=== PATIENT | female | born 1990 | race Hispanic/Latino ===

== ENCOUNTER 2016-11-25 01:40 | Inpatient (IN) | payer OTHER ==
[2016-11-25] MEDS ORDERED: LACTATED RINGERS 1,000 ML ONE (03:55)
--- NOTE | 2016-11-25 04:27 | History and Physical Report ---
History of Present Illness Date of examination: 11/25/16 Chief complaint: PPROM History of present illness: 26-year-old at ~ 35 weeks presents with rupture of membranes, she is a [facility] patient. care has been unremarkable. Patient grossly ruptured per RN in triage, cephalic presentation on sono She is 1 cm dilated Past History Past Medical History: no pertinent history Past Surgical History: no surgical history [facility] History: denies: chlamydia, gonorrhea, hepatitis B, hepatitis C, herpes, HIV , syphilis, trichomonas Social history: , full code. denies: smoking, alcohol abuse, prescription drug abuse, IV drug use - Obstetrical History Expected Date of Delivery: 12/29/16 Actual Gestation: 35 Week(s) 1 Day(s) : 1 Para: 0 Medications and Allergies Allergies Allergy/AdvReac Type Severity Reaction Status Date / Time No Known Allergies Allergy Verified 11/25/16 04:22 Review of Systems Constitutional: no fever, no chills, no sweats, no night sweats, no anorexia, no fatigue Cardiovascular: no chest pain, no orthopnea, no syncope, no lightheadedness, no shortness of breath, no dyspnea on exertion, no paroxysmal nocturnal dyspnea, no high blood pressure Respiratory: no cough with sputum, no hemoptysis, no shortness of breath, no dyspnea on exertion Gastrointestinal: no abdominal pain, no nausea, no vomiting Genitourinary: leakage of fluid, no vaginal bleeding, no vaginal discharge - Vital Signs Vital signs: Vital Signs Pulse Pulse Ox 227 H 82 L 11/25/16 01:56 11/25/16 01:56 Temp Pulse Resp BP Pulse Ox 98.5 F 98 H 18 131/90 82 L 11/25/16 02:10 11/25/16 03:57 11/25/16 02:10 11/25/16 01:57 11/25/16 03:57 - Physical Exam Abdomen: Positive: normal appearance, soft. Negative: distention, tenderness, guarding, rigidity Genitourinary (Female): Positive: normal external genitalia Uterus: Positive: enlarged (EFW ~ 3000). Negative: tender Adnexa: both: normal Extremities: Positive: normal - Obstetrical FHR: category 1 Cervical Dilatation: 1 (per RN exam) Results All other labs normal. Assessment and Plan A: 26-year-old at 35+1 weeks presents with PPROM -Cat 1 tracing P: -Admit -Obtain routine labs -Expectant management -Anticipate normal vaginal delivery - Patient Problems (1) 35 weeks gestation of Current Visit: Yes Status: Acute (2) Premature rupture of membranes (PROM) affecting first Current Visit: Yes Status: Acute
[2016-11-25] MEDS ORDERED: BRETHINE IVP PRN (04:30)
[2016-11-25] MEDS ORDERED: PHENERGAN PO PRN (04:30)
[2016-11-25] MEDS ORDERED: ZOFRAN IV PRN (04:30)
[2016-11-25] MEDS ORDERED: POLYCILLIN/NS 2 GM/100 ML 2 GM/100 ML BAG IV ONE (04:30)
[2016-11-25] MEDS ORDERED: XYLOCAINE 2% INFILTRATI ONE (04:30)
[2016-11-25] MEDS ORDERED: ePHEDrine SULFATE IV PRN (04:30)
[2016-11-25] MEDS ORDERED: BRETHINE SUB-Q PRN (04:30)
[2016-11-25] MEDS ORDERED: MINERAL OIL PO PRN (04:30)
[2016-11-25] MEDS ORDERED: PITOCin/NS 20 UNIT/1000ML DRIP 20 UNITS/1,000 ML BAG IV SCH (05:00)
[2016-11-25 05:03] LABS: Hematocrit 32.7 % (30.3-42.9); Hemoglobin 11.2 gm/dl (10.1-14.3); Mean Corpuscular HGB Conc 34 % (30-34); Mean Corpuscular Hemoglobin 30 pg (28-32); Mean Corpuscular Volume 88 fl (79-97); Platelet Count 255 K/mm3 (140-440); Red Blood Count 3.71 M/mm3 (3.65-5.03); White Blood Count 9.5 K/mm3 (4.5-11.0)
[2016-11-25] MEDS: LACTATED RINGERS 1,000 ML IV SCH ×2 (05:15→15:13)
[2016-11-25 06:32] LABS: Urine Drugs of Abuse Note Disclamer
--- NOTE | 2016-11-25 08:01 | Ultrasound Report ---
ULTRASOUND OB LIMITED History: well being, evaluate presentation Technique: Transabdominal ultrasound with Doppler interrogation. Gestation: Single Position: Cephalic Heart Rate: 149 BPM
[2016-11-25] MEDS: POLYCILLIN/NS 1 GM/50 ML 1 GM/50 ML BAG IV SCH ×4 (09:24→21:35)
[2016-11-25] MEDS: PITOCin/NS 30 UNIT/500ML 30 UNITS/500 ML BAG IV SCH ×4 (09:56→11:36)
--- NOTE | 2016-11-25 10:43 | Progress Note ---
Assessment and Plan - Patient Problems (1) 35 weeks gestation of Current Visit: Yes Status: Acute (2) Premature rupture of membranes (PROM) affecting first Current Visit: Yes Status: Acute Subjective - Subjective Date of service: 11/25/16 Patient reports: new complaints, movement normal, no loss of fluid, no vaginal bleeding Objective - Vital Signs Vital Signs: Vital Signs - 12hr 11/25/16 11/25/16 11/25/16 01:56 01:57 02:02 Temperature Pulse Rate 227 H 107 H 112 H Respiratory Rate Blood Pressure 131/90 Blood Pressure [Right] O2 Sat by Pulse 82 L 99 96 Oximetry 11/25/16 11/25/16 11/25/16 02:07 02:08 02:09 Temperature Pulse Rate 105 H 85 166 H Respiratory Rate Blood Pressure Blood Pressure [Right] O2 Sat by Pulse 95 97 82 L Oximetry 11/25/16 11/25/16 11/25/16 02:10 02:13 02:26 Temperature 98.5 F Pulse Rate 278 H 192 H Respiratory 18 Rate Blood Pressure Blood Pressure [Right] O2 Sat by Pulse 82 L 82 L Oximetry 11/25/16 11/25/16 11/25/16 02:27 02:28 02:29 Temperature Pulse Rate 133 H 174 H 182 H Respiratory Rate Blood Pressure Blood Pressure [Right] O2 Sat by Pulse 82 L 82 L 82 L Oximetry 11/25/16 11/25/16 11/25/16 02:35 02:37 02:43 Temperature Pulse Rate 352 H 133 H 289 H Respiratory Rate Blood Pressure Blood Pressure [Right] O2 Sat by Pulse 96 82 L 82 L Oximetry 11/25/16 11/25/16 11/25/16 02:49 02:56 02:58 Temperature Pulse Rate 97 H 293 H 50 L Respiratory Rate Blood Pressure Blood Pressure [Right] O2 Sat by Pulse 82 L 82 L 82 L Oximetry 11/25/16 11/25/16 11/25/16 02:59 03:00 03:02 Temperature Pulse Rate 45 L 72 29 L Respiratory Rate Blood Pressure Blood Pressure [Right] O2 Sat by Pulse 82 L 82 L 82 L Oximetry 11/25/16 11/25/16 11/25/16 03:03 03:04 03:05 Temperature Pulse Rate 85 88 67 Respiratory Rate Blood Pressure Blood Pressure [Right] O2 Sat by Pulse 82 L 82 L 82 L Oximetry 11/25/16 11/25/16 11/25/16 03:06 03:14 03:16 Temperature Pulse Rate 125 H 105 H 227 H Respiratory Rate Blood Pressure Blood Pressure [Right] O2 Sat by Pulse 99 82 L 82 L Oximetry 11/25/16 11/25/16 11/25/16 03:17 03:20 03:22 Temperature Pulse Rate 79 113 H 138 H Respiratory Rate Blood Pressure Blood Pressure [Right] O2 Sat by Pulse 82 L 82 L 82 L Oximetry 11/25/16 11/25/16 11/25/16 03:23 03:25 03:57 Temperature Pulse Rate 138 H 100 H 98 H Respiratory Rate Blood Pressure Blood Pressure [Right] O2 Sat by Pulse 82 L 82 L 82 L Oximetry 11/25/16 11/25/16 11/25/16 04:30 05:37 06:06 Temperature 98.7 F 98.5 F Pulse Rate Respiratory 18 18 18 Rate Blood Pressure Blood Pressure [Right] O2 Sat by Pulse Oximetry 11/25/16 11/25/16 11/25/16 07:45 08:13 09:04 Temperature 97.8 F 98.8 F Pulse Rate 86 88 113 H Respiratory 20 18 Rate Blood Pressure 121/74 Blood Pressure 121/74 124/86 [Right] O2 Sat by Pulse 98 97 Oximetry 11/25/16 11/25/16 11/25/16 09:07 09:59 10:04 Temperature Pulse Rate 140 H 110 H 114 H Respiratory Rate Blood Pressure 124/86 126/76 Blood Pressure [Right] O2 Sat by Pulse 97 98 96 Oximetry 11/25/16 11/25/16 11/25/16 10:09 10:14 10:19 Temperature Pulse Rate 109 H 119 H 109 H Respiratory Rate Blood Pressure Blood Pressure [Right] O2 Sat by Pulse 96 97 95 Oximetry 11/25/16 11/25/16 11/25/16 10:23 10:24 10:29 Temperature Pulse Rate 95 H 107 H 96 H Respiratory Rate Blood Pressure Blood Pressure [Right] O2 Sat by Pulse 94 96 97 Oximetry 11/25/16 11/25/16 11/25/16 10:34 10:39 10:44 Temperature Pulse Rate 97 H 119 H 115 H Respiratory Rate Blood Pressure 116/74 Blood Pressure [Right] O2 Sat by Pulse 96 94 96 Oximetry - Exam FHR: category 1 - Labs Labs: Abnormal Labs 11/25/16 04:30 RDW 13.0 L Laboratory Results - last 24 hr 11/25/16 11/25/16 11/25/16 04:30 04:39 06:20 WBC 9.5 RBC 3.71 Hgb 11.2 Hct 32.7 MCV 88 MCH 30 MCHC 34 RDW 13.0 L Plt Count 255 Urine Opiates Screen Presumptive negative Urine Methadone Screen Presumptive negative Ur Barbiturates Screen Presumptive negative Ur Phencyclidine Scrn Presumptive negative Ur Amphetamines Screen Presumptive negative U Benzodiazepines Scrn Presumptive negative Urine Cocaine Screen Presumptive negative U Marijuana (THC) Screen Presumptive negative Drugs of Abuse Note Disclamer Blood Type A POSITIVE Antibody Screen Negative
[2016-11-25] MEDS ORDERED: DEEP SEA NS PRN (11:00)
--- NOTE | 2016-11-25 20:15 | Progress Note ---
Assessment and Plan - Patient Problems (1) 35 weeks gestation of Current Visit: Yes Status: Acute (2) Premature rupture of membranes (PROM) affecting first Current Visit: Yes Status: Acute Subjective - Subjective Date of service: 11/25/16 Patient reports: new complaints, movement normal, no loss of fluid, no vaginal bleeding, no contractions Objective - Vital Signs Vital Signs: Vital Signs - 12hr 11/25/16 11/25/16 11/25/16 09:04 09:07 09:59 Temperature 98.8 F Pulse Rate 113 H 140 H 110 H Respiratory 18 Rate Blood Pressure 124/86 126/76 Blood Pressure 124/86 [Right] O2 Sat by Pulse 97 97 98 Oximetry 11/25/16 11/25/16 11/25/16 10:04 10:09 10:14 Temperature Pulse Rate 114 H 109 H 119 H Respiratory Rate Blood Pressure Blood Pressure [Right] O2 Sat by Pulse 96 96 97 Oximetry 11/25/16 11/25/16 11/25/16 10:19 10:23 10:24 Temperature Pulse Rate 109 H 95 H 107 H Respiratory Rate Blood Pressure Blood Pressure [Right] O2 Sat by Pulse 95 94 96 Oximetry 11/25/16 11/25/16 11/25/16 10:29 10:34 10:39 Temperature Pulse Rate 96 H 97 H 119 H Respiratory Rate Blood Pressure 116/74 Blood Pressure [Right] O2 Sat by Pulse 97 96 94 Oximetry 11/25/16 11/25/16 11/25/16 10:44 10:46 10:49 Temperature Pulse Rate 115 H 88 85 Respiratory Rate Blood Pressure Blood Pressure [Right] O2 Sat by Pulse 96 92 98 Oximetry 11/25/16 11/25/16 11/25/16 10:52 10:54 10:57 Temperature Pulse Rate 107 H 110 H 96 H Respiratory Rate Blood Pressure Blood Pressure [Right] O2 Sat by Pulse 93 95 94 Oximetry 11/25/16 11/25/16 11/25/16 10:59 11:03 11:04 Temperature Pulse Rate 111 H 105 H 87 Respiratory Rate Blood Pressure Blood Pressure [Right] O2 Sat by Pulse 95 94 95 Oximetry 11/25/16 11/25/16 11/25/16 11:08 11:09 11:14 Temperature Pulse Rate 85 86 107 H Respiratory Rate Blood Pressure 119/70 Blood Pressure [Right] O2 Sat by Pulse 96 97 Oximetry 11/25/16 11/25/16 11/25/16 11:19 11:24 11:25 Temperature Pulse Rate 100 H 83 85 Respiratory Rate Blood Pressure Blood Pressure [Right] O2 Sat by Pulse 95 95 94 Oximetry 11/25/16 11/25/16 11/25/16 11:29 11:30 11:34 Temperature Pulse Rate 107 H 100 H 98 H Respiratory Rate Blood Pressure Blood Pressure [Right] O2 Sat by Pulse 96 94 95 Oximetry 11/25/16 11/25/16 11/25/16 11:39 11:44 11:56 Temperature 98.4 F Pulse Rate 91 H 104 H 119 H Respiratory 18 Rate Blood Pressure 106/65 Blood Pressure 116/66 [Right] O2 Sat by Pulse 97 96 97 Oximetry 11/25/16 11/25/16 11/25/16 11:59 13:00 14:00 Temperature Pulse Rate 106 H 89 96 H Respiratory Rate Blood Pressure 116/66 117/76 124/79 Blood Pressure [Right] O2 Sat by Pulse 96 Oximetry 11/25/16 11/25/16 11/25/16 14:59 15:59 16:00 Temperature 98.5 F Pulse Rate 100 H 95 H 95 H Respiratory 18 Rate Blood Pressure 116/68 121/76 Blood Pressure 121/76 [Right] O2 Sat by Pulse Oximetry 11/25/16 11/25/16 11/25/16 17:01 17:59 18:59 Temperature Pulse Rate 85 85 118 H Respiratory Rate Blood Pressure 114/72 112/77 110/77 Blood Pressure [Right] O2 Sat by Pulse Oximetry 11/25/16 11/25/16 19:36 19:59 Temperature Pulse Rate 105 H 110 H Respiratory Rate Blood Pressure 128/79 118/74 Blood Pressure [Right] O2 Sat by Pulse Oximetry - Exam FHR: category 1 - Labs Labs: Abnormal Labs 11/25/16 04:30 RDW 13.0 L Laboratory Results - last 24 hr 11/25/16 11/25/16 11/25/16 04:30 04:39 04:50 WBC 9.5 RBC 3.71 Hgb 11.2 Hct 32.7 MCV 88 MCH 30 MCHC 34 RDW 13.0 L Plt Count 255 Urine Opiates Screen Urine Methadone Screen Ur Barbiturates Screen Ur Phencyclidine Scrn Ur Amphetamines Screen U Benzodiazepines Scrn Urine Cocaine Screen U Marijuana (THC) Screen Drugs of Abuse Note RPR Nonreactive Blood Type A POSITIVE Antibody Screen Negative 11/25/16 06:20 WBC RBC Hgb Hct MCV MCH MCHC RDW Plt Count Urine Opiates Screen Presumptive negative Urine Methadone Screen Presumptive negative Ur Barbiturates Screen Presumptive negative Ur Phencyclidine Scrn Presumptive negative Ur Amphetamines Screen Presumptive negative U Benzodiazepines Scrn Presumptive negative Urine Cocaine Screen Presumptive negative U Marijuana (THC) Screen Presumptive negative Drugs of Abuse Note Disclamer RPR Blood Type Antibody Screen
[2016-11-26] MEDS: POLYCILLIN/NS 1 GM/50 ML 1 GM/50 ML BAG IV SCH ×4 (01:24→17:14)
[2016-11-26] MEDS: SUBLIMAZE IV PRN ×5 (02:39→10:29)
--- NOTE | 2016-11-26 06:32 | Progress Note ---
Assessment and Plan A: 26-year-old at 35+2 weeks presents with PPROM -Cat 1 tracing P: -Continue induction process -Anticipate normal vaginal delivery - Patient Problems (1) 35 weeks gestation of Current Visit: Yes Status: Acute (2) Premature rupture of membranes (PROM) affecting first Current Visit: Yes Status: Acute Subjective - Subjective Date of service: 11/26/16 Principal diagnosis: PPROM at 35+2 wks Interval history: Patient currently on Pitocin at 20 mu per minute, she is now 3 cm dilated Patient reports: new complaints, loss of fluid, movement normal, no vaginal bleeding, no contractions Objective - Vital Signs Vital Signs: Vital Signs - 12hr 11/25/16 11/25/16 11/25/16 18:59 19:30 19:36 Temperature 97.8 F Pulse Rate 118 H 105 H Respiratory 18 Rate Blood Pressure 110/77 128/79 11/25/16 11/26/16 11/26/16 19:59 00:10 00:16 Temperature 98.3 F Pulse Rate 110 H 108 H Respiratory 18 Rate Blood Pressure 118/74 129/59 11/26/16 11/26/16 11/26/16 00:47 01:22 01:47 Temperature Pulse Rate 93 H 97 H 94 H Respiratory Rate Blood Pressure 106/57 118/74 124/79 11/26/16 11/26/16 11/26/16 02:19 02:23 02:39 Temperature 98.3 F Pulse Rate 95 H Respiratory 20 Rate Blood Pressure 121/76 11/26/16 11/26/16 11/26/16 02:47 03:17 04:18 Temperature Pulse Rate 88 83 85 Respiratory Rate Blood Pressure 127/78 122/72 122/65 11/26/16 11/26/16 11/26/16 04:38 04:48 05:17 Temperature 98.3 F Pulse Rate 87 77 Respiratory 20 Rate Blood Pressure 118/77 107/61 11/26/16 11/26/16 11/26/16 05:48 06:18 06:29 Temperature 98.1 F Pulse Rate 80 101 H Respiratory 18 Rate Blood Pressure 109/65 131/65 - Exam FHR: category 1 Cervical Dilatation: 3 - Labs Labs: Abnormal Labs 11/25/16 04:30 RDW 13.0 L Laboratory Results - last 24 hr 11/25/16 11/25/16 04:50 06:20 Urine Opiates Screen Presumptive negative Urine Methadone Screen Presumptive negative Ur Barbiturates Screen Presumptive negative Ur Phencyclidine Scrn Presumptive negative Ur Amphetamines Screen Presumptive negative U Benzodiazepines Scrn Presumptive negative Urine Cocaine Screen Presumptive negative U Marijuana (THC) Screen Presumptive negative Drugs of Abuse Note Disclamer RPR Nonreactive
[2016-11-26] MEDS: LACTATED RINGERS 1,000 ML IV SCH ×3 (10:31→12:44)
--- NOTE | 2016-11-26 10:44 | Progress Note ---
Assessment and Plan A: 26-year-old at 35+2 weeks presents with PPROM -Cat 1 tracing P: -Continue present care -Anticipate normal vaginal delivery - Patient Problems (1) 35 weeks gestation of Current Visit: Yes Status: Acute (2) Premature rupture of membranes (PROM) affecting first Current Visit: Yes Status: Acute Subjective - Subjective Date of service: 11/26/16 Principal diagnosis: PPROM at 35+2 wks Interval history: Patient currently on Pitocin at 22 mu per minute, she is now 3-4 cm dilated. IUPC placed w/out difficulty Patient reports: new complaints, loss of fluid, movement normal, no vaginal bleeding, no contractions Objective - Vital Signs Vital Signs: Vital Signs - 12hr 11/26/16 11/26/16 11/26/16 00:10 00:16 00:47 Temperature 98.3 F Pulse Rate 108 H 93 H Respiratory 18 Rate Blood Pressure 129/59 106/57 Blood Pressure [Right] O2 Sat by Pulse Oximetry 11/26/16 11/26/16 11/26/16 01:22 01:47 02:19 Temperature Pulse Rate 97 H 94 H 95 H Respiratory Rate Blood Pressure 118/74 124/79 121/76 Blood Pressure [Right] O2 Sat by Pulse Oximetry 11/26/16 11/26/16 11/26/16 02:23 02:39 02:47 Temperature 98.3 F Pulse Rate 88 Respiratory 20 Rate Blood Pressure 127/78 Blood Pressure [Right] O2 Sat by Pulse Oximetry 11/26/16 11/26/16 11/26/16 03:17 04:18 04:38 Temperature 98.3 F Pulse Rate 83 85 Respiratory 20 Rate Blood Pressure 122/72 122/65 Blood Pressure [Right] O2 Sat by Pulse Oximetry 11/26/16 11/26/16 11/26/16 04:48 05:17 05:48 Temperature Pulse Rate 87 77 80 Respiratory Rate Blood Pressure 118/77 107/61 109/65 Blood Pressure [Right] O2 Sat by Pulse Oximetry 11/26/16 11/26/16 11/26/16 06:18 06:29 06:47 Temperature 98.1 F Pulse Rate 101 H 82 Respiratory 18 Rate Blood Pressure 131/65 106/60 Blood Pressure [Right] O2 Sat by Pulse Oximetry 11/26/16 11/26/16 11/26/16 07:17 07:48 08:17 Temperature Pulse Rate 104 H 117 H 88 Respiratory Rate Blood Pressure 109/68 129/81 139/64 Blood Pressure [Right] O2 Sat by Pulse Oximetry 11/26/16 11/26/16 11/26/16 08:20 08:24 08:25 Temperature 98.4 F Pulse Rate 99 H 92 H 87 Respiratory 18 Rate Blood Pressure 122/64 Blood Pressure 122/64 [Right] O2 Sat by Pulse 97 98 94 Oximetry 11/26/16 11/26/16 11/26/16 08:29 08:33 08:34 Temperature Pulse Rate 97 H 109 H 85 Respiratory Rate Blood Pressure Blood Pressure [Right] O2 Sat by Pulse 98 94 98 Oximetry 11/26/16 11/26/16 11/26/16 08:39 08:41 08:44 Temperature Pulse Rate 88 80 74 Respiratory Rate Blood Pressure Blood Pressure [Right] O2 Sat by Pulse 96 94 96 Oximetry 11/26/16 11/26/16 11/26/16 08:47 08:48 08:49 Temperature Pulse Rate 73 93 H Respiratory 16 Rate Blood Pressure 119/76 Blood Pressure [Right] O2 Sat by Pulse 96 Oximetry 11/26/16 11/26/16 11/26/16 08:51 08:54 08:57 Temperature Pulse Rate 79 75 83 Respiratory Rate Blood Pressure Blood Pressure [Right] O2 Sat by Pulse 93 94 94 Oximetry 11/26/16 11/26/16 11/26/16 08:59 09:04 09:09 Temperature Pulse Rate 98 H 78 76 Respiratory Rate Blood Pressure Blood Pressure [Right] O2 Sat by Pulse 96 95 95 Oximetry 11/26/16 11/26/16 11/26/16 09:14 09:17 09:19 Temperature Pulse Rate 74 73 73 Respiratory Rate Blood Pressure 114/63 Blood Pressure [Right] O2 Sat by Pulse 96 96 Oximetry 11/26/16 11/26/16 11/26/16 09:24 09:29 09:34 Temperature Pulse Rate 81 86 100 H Respiratory Rate Blood Pressure Blood Pressure [Right] O2 Sat by Pulse 96 97 98 Oximetry 11/26/16 11/26/16 11/26/16 09:39 09:44 09:47 Temperature Pulse Rate 84 76 72 Respiratory Rate Blood Pressure 125/59 Blood Pressure [Right] O2 Sat by Pulse 97 95 Oximetry 11/26/16 11/26/16 11/26/16 09:49 09:51 09:54 Temperature Pulse Rate 76 84 87 Respiratory Rate Blood Pressure Blood Pressure [Right] O2 Sat by Pulse 96 94 97 Oximetry 11/26/16 11/26/16 11/26/16 09:56 09:59 10:03 Temperature Pulse Rate 84 74 79 Respiratory Rate Blood Pressure Blood Pressure [Right] O2 Sat by Pulse 94 94 94 Oximetry 11/26/16 11/26/16 11/26/16 10:04 10:08 10:09 Temperature Pulse Rate 82 75 96 H Respiratory Rate Blood Pressure Blood Pressure [Right] O2 Sat by Pulse 95 94 97 Oximetry 11/26/16 11/26/16 11/26/16 10:10 10:13 10:14 Temperature 98.9 F Pulse Rate 81 86 89 Respiratory 18 Rate Blood Pressure 110/65 Blood Pressure 110/65 [Right] O2 Sat by Pulse 98 93 Oximetry 11/26/16 10:17 Temperature Pulse Rate 75 Respiratory Rate Blood Pressure 116/68 Blood Pressure [Right] O2 Sat by Pulse Oximetry - Exam FHR: category 1 Cervical Dilatation: 3.5 - Labs Labs: Abnormal Labs 11/25/16 04:30 RDW 13.0 L Laboratory Results - last 24 hr 11/25/16 04:50 RPR Nonreactive
--- NOTE | 2016-11-26 10:56 | Event Note ---
Date: 11/26/16 Tachysystole noted after IUPC placed, tracing still cat 2. Will reduce Pit to 10 mu/min for now, presently at 22 mu/min. If tachysystole resolves, will increase Pit again with IUPC guidiance.
[2016-11-26] MEDS ORDERED: ePHEDrine SULFATE ONE (11:47)
--- NOTE | 2016-11-26 11:56 | Ultrasound Report ---
ULTRASOUND OB LIMITED History: well being Technique: Transabdominal ultrasound with Doppler interrogation. Gestation: Single Position: Cephalic Amniotic Fluid: Decreased EMILIANO = 4.4 cm Heart Rate: 131 BPM
[2016-11-26] MEDS ORDERED: NARCAN 2 MG/2 ML IV PRN (12:32)
[2016-11-26] MEDS ORDERED: ePHEDrine SULFATE IV PRN (12:32)
--- NOTE | 2016-11-26 12:32 | Anesthesia Consultation ---
Anesthesia Consult and Med Hx Date of service: 11/26/16 - Airway Anesthetic Teeth Evaluation: Good ROM Head & Neck: Adequate Mental/Hyoid Distance: Adequate Mallampati Class: Class II Intubation Access Assessment: Probably Good - Pre-Operative Health Status ASA Pre-Surgery Classification: ASA2 Proposed Anesthetic Plan: Epidural, Spinal - Pulmonary Hx Asthma: No COPD: No Hx Pneumonia: No - Cardiovascular System Hx Hypertension: No - Central Nervous System Hx Seizures: No - Endocrine Hx Renal Disease: No Hx End Stage Renal Disease: No Hx Hypothyroidism: No Hx Hyperthyroidism: No - Hematic Hx Anemia: Yes - Other Systems Hx Alcohol Use: No
[2016-11-26] MEDS ORDERED: fentaNYL-BUPIV 2 MCG/ML-0.125% 200 MCG/100 ML BAG EPIDURAL SCH (13:00)
--- NOTE | 2016-11-26 18:22 | Progress Note ---
Assessment and Plan - Patient Problems (1) 35 weeks gestation of Current Visit: Yes Status: Acute (2) Premature rupture of membranes (PROM) affecting first Current Visit: Yes Status: Acute Subjective - Subjective Date of service: 11/26/16 Principal diagnosis: PPROM at 35+2 wks Interval history: Patient currently on Pitocin at 22 mu per minute, she is now 9 cm dilated. Patient reports: new complaints, loss of fluid, movement normal, no vaginal bleeding, no contractions Objective - Vital Signs Vital Signs: Vital Signs - 12hr 11/26/16 11/26/16 11/26/16 06:29 06:47 07:17 Temperature 98.1 F Pulse Rate 82 104 H Respiratory 18 Rate Blood Pressure 106/60 109/68 Blood Pressure [Right] O2 Sat by Pulse Oximetry 11/26/16 11/26/16 11/26/16 07:48 08:17 08:20 Temperature 98.4 F Pulse Rate 117 H 88 99 H Respiratory 18 Rate Blood Pressure 129/81 139/64 Blood Pressure 122/64 [Right] O2 Sat by Pulse 97 Oximetry 11/26/16 11/26/16 11/26/16 08:24 08:25 08:29 Temperature Pulse Rate 92 H 87 97 H Respiratory Rate Blood Pressure 122/64 Blood Pressure [Right] O2 Sat by Pulse 98 94 98 Oximetry 11/26/16 11/26/16 11/26/16 08:33 08:34 08:39 Temperature Pulse Rate 109 H 85 88 Respiratory Rate Blood Pressure Blood Pressure [Right] O2 Sat by Pulse 94 98 96 Oximetry 11/26/16 11/26/16 11/26/16 08:41 08:44 08:47 Temperature Pulse Rate 80 74 73 Respiratory Rate Blood Pressure 119/76 Blood Pressure [Right] O2 Sat by Pulse 94 96 Oximetry 11/26/16 11/26/16 11/26/16 08:48 08:49 08:51 Temperature Pulse Rate 93 H 79 Respiratory 16 Rate Blood Pressure Blood Pressure [Right] O2 Sat by Pulse 96 93 Oximetry 11/26/16 11/26/16 11/26/16 08:54 08:57 08:59 Temperature Pulse Rate 75 83 98 H Respiratory Rate Blood Pressure Blood Pressure [Right] O2 Sat by Pulse 94 94 96 Oximetry 11/26/16 11/26/16 11/26/16 09:04 09:09 09:14 Temperature Pulse Rate 78 76 74 Respiratory Rate Blood Pressure Blood Pressure [Right] O2 Sat by Pulse 95 95 96 Oximetry 11/26/16 11/26/16 11/26/16 09:17 09:19 09:24 Temperature Pulse Rate 73 73 81 Respiratory Rate Blood Pressure 114/63 Blood Pressure [Right] O2 Sat by Pulse 96 96 Oximetry 11/26/16 11/26/16 11/26/16 09:29 09:34 09:39 Temperature Pulse Rate 86 100 H 84 Respiratory Rate Blood Pressure Blood Pressure [Right] O2 Sat by Pulse 97 98 97 Oximetry 11/26/16 11/26/16 11/26/16 09:44 09:47 09:49 Temperature Pulse Rate 76 72 76 Respiratory Rate Blood Pressure 125/59 Blood Pressure [Right] O2 Sat by Pulse 95 96 Oximetry 11/26/16 11/26/16 11/26/16 09:51 09:54 09:56 Temperature Pulse Rate 84 87 84 Respiratory Rate Blood Pressure Blood Pressure [Right] O2 Sat by Pulse 94 97 94 Oximetry 11/26/16 11/26/16 11/26/16 09:59 10:03 10:04 Temperature Pulse Rate 74 79 82 Respiratory Rate Blood Pressure Blood Pressure [Right] O2 Sat by Pulse 94 94 95 Oximetry 11/26/16 11/26/16 11/26/16 10:08 10:09 10:10 Temperature 98.9 F Pulse Rate 75 96 H 81 Respiratory 18 Rate Blood Pressure Blood Pressure 110/65 [Right] O2 Sat by Pulse 94 97 98 Oximetry 11/26/16 11/26/16 11/26/16 10:13 10:14 10:17 Temperature Pulse Rate 86 89 75 Respiratory Rate Blood Pressure 110/65 116/68 Blood Pressure [Right] O2 Sat by Pulse 93 Oximetry 11/26/16 11/26/16 11/26/16 12:12 12:13 12:14 Temperature 98.8 F Pulse Rate 95 H 110 H 109 H Respiratory Rate Blood Pressure 128/83 Blood Pressure 122/70 [Right] O2 Sat by Pulse 98 Oximetry 11/26/16 11/26/16 11/26/16 12:15 12:17 12:18 Temperature Pulse Rate 88 101 H 80 Respiratory Rate Blood Pressure 122/70 118/67 Blood Pressure [Right] O2 Sat by Pulse 98 Oximetry 09/10/0511/26/16 11/26/16 12:19 12:21 12:23 Temperature Pulse Rate 84 86 84 Respiratory Rate Blood Pressure 118/71 121/70 122/66 Blood Pressure [Right] O2 Sat by Pulse 97 Oximetry 11/26/16 11/26/16 11/26/16 12:28 12:29 12:31 Temperature Pulse Rate 75 74 85 Respiratory Rate Blood Pressure 115/57 117/55 107/53 Blood Pressure [Right] O2 Sat by Pulse 98 Oximetry 11/26/16 11/26/16 11/26/16 12:33 12:38 12:43 Temperature Pulse Rate 86 91 H 84 Respiratory Rate Blood Pressure Blood Pressure [Right] O2 Sat by Pulse 98 98 99 Oximetry 11/26/16 11/26/16 11/26/16 12:48 12:53 12:58 Temperature Pulse Rate 84 72 75 Respiratory Rate Blood Pressure Blood Pressure [Right] O2 Sat by Pulse 98 99 99 Oximetry 11/26/16 11/26/16 11/26/16 13:03 13:08 13:13 Temperature Pulse Rate 74 90 69 Respiratory Rate Blood Pressure 99/54 Blood Pressure [Right] O2 Sat by Pulse 98 98 98 Oximetry 11/26/16 11/26/16 11/26/16 13:18 13:23 13:28 Temperature Pulse Rate 71 71 77 Respiratory Rate Blood Pressure Blood Pressure [Right] O2 Sat by Pulse 98 98 98 Oximetry 11/26/16 11/26/16 11/26/16 13:33 13:38 13:43 Temperature Pulse Rate 70 71 76 Respiratory Rate Blood Pressure 99/55 Blood Pressure [Right] O2 Sat by Pulse 98 97 97 Oximetry 11/26/16 11/26/16 11/26/16 13:48 13:53 13:58 Temperature Pulse Rate 78 79 73 Respiratory Rate Blood Pressure Blood Pressure [Right] O2 Sat by Pulse 98 97 97 Oximetry 11/26/16 11/26/16 11/26/16 14:02 14:03 14:08 Temperature Pulse Rate 92 H 98 H 90 Respiratory Rate Blood Pressure 103/61 Blood Pressure [Right] O2 Sat by Pulse 99 97 Oximetry 11/26/16 11/26/16 11/26/16 14:13 14:18 14:23 Temperature Pulse Rate 82 116 H 87 Respiratory Rate Blood Pressure Blood Pressure [Right] O2 Sat by Pulse 97 97 97 Oximetry 11/26/16 11/26/16 11/26/16 14:28 14:33 14:38 Temperature Pulse Rate 82 73 82 Respiratory Rate Blood Pressure 122/75 Blood Pressure [Right] O2 Sat by Pulse 96 96 96 Oximetry 11/26/16 11/26/16 11/26/16 14:43 14:48 14:49 Temperature 99.0 F Pulse Rate 81 80 89 Respiratory Rate Blood Pressure Blood Pressure 122/75 [Right] O2 Sat by Pulse 96 97 Oximetry 11/26/16 11/26/16 11/26/16 14:53 14:58 15:03 Temperature Pulse Rate 81 82 80 Respiratory Rate Blood Pressure 113/66 Blood Pressure [Right] O2 Sat by Pulse 96 96 95 Oximetry 11/26/16 11/26/16 11/26/16 15:08 15:13 15:18 Temperature Pulse Rate 101 H 89 86 Respiratory Rate Blood Pressure Blood Pressure [Right] O2 Sat by Pulse 95 96 96 Oximetry 11/26/16 11/26/16 11/26/16 15:23 15:24 15:28 Temperature Pulse Rate 94 H 102 H 91 H Respiratory Rate Blood Pressure Blood Pressure [Right] O2 Sat by Pulse 95 94 96 Oximetry 11/26/16 11/26/16 11/26/16 15:32 15:33 15:38 Temperature Pulse Rate 98 H 98 H 81 Respiratory Rate Blood Pressure 133/76 Blood Pressure [Right] O2 Sat by Pulse 96 95 Oximetry 11/26/16 11/26/16 11/26/16 15:43 15:48 15:53 Temperature Pulse Rate 93 H 84 80 Respiratory Rate Blood Pressure Blood Pressure [Right] O2 Sat by Pulse 96 96 96 Oximetry 11/26/16 11/26/16 11/26/16 15:58 16:02 16:03 Temperature Pulse Rate 79 100 H 77 Respiratory Rate Blood Pressure 128/65 Blood Pressure [Right] O2 Sat by Pulse 95 96 Oximetry 11/26/16 11/26/16 11/26/16 16:08 16:13 16:18 Temperature Pulse Rate 99 H 94 H 85 Respiratory Rate Blood Pressure Blood Pressure [Right] O2 Sat by Pulse 97 97 96 Oximetry 11/26/16 11/26/16 11/26/16 16:23 16:28 16:33 Temperature Pulse Rate 88 76 105 H Respiratory Rate Blood Pressure 122/80 Blood Pressure [Right] O2 Sat by Pulse 97 96 97 Oximetry 11/26/16 11/26/16 11/26/16 16:38 16:43 16:48 Temperature Pulse Rate 104 H 99 H 89 Respiratory Rate Blood Pressure Blood Pressure [Right] O2 Sat by Pulse 96 98 96 Oximetry 11/26/16 11/26/16 11/26/16 16:53 16:58 17:03 Temperature Pulse Rate 92 H 100 H 91 H Respiratory Rate Blood Pressure Blood Pressure [Right] O2 Sat by Pulse 97 98 97 Oximetry 11/26/16 11/26/16 11/26/16 17:04 17:08 17:13 Temperature Pulse Rate 94 H 88 86 Respiratory Rate Blood Pressure 123/54 Blood Pressure [Right] O2 Sat by Pulse 100 98 Oximetry 11/26/16 11/26/16 11/26/16 17:18 17:23 17:28 Temperature Pulse Rate 90 104 H 91 H Respiratory Rate Blood Pressure Blood Pressure [Right] O2 Sat by Pulse 97 98 98 Oximetry 11/26/16 11/26/16 11/26/16 17:33 17:38 17:43 Temperature Pulse Rate 86 91 H 89 Respiratory Rate Blood Pressure 117/67 Blood Pressure [Right] O2 Sat by Pulse 98 99 99 Oximetry 11/26/16 11/26/16 11/26/16 17:48 17:53 17:58 Temperature Pulse Rate 96 H 98 H 104 H Respiratory Rate Blood Pressure Blood Pressure [Right] O2 Sat by Pulse 96 98 98 Oximetry 11/26/16 11/26/16 11/26/16 18:03 18:08 18:13 Temperature Pulse Rate 98 H 88 89 Respiratory Rate Blood Pressure 114/77 Blood Pressure [Right] O2 Sat by Pulse 98 96 93 Oximetry 11/26/16 11/26/16 11/26/16 18:18 18:20 18:23 Temperature Pulse Rate 95 H 99 H 91 H Respiratory Rate Blood Pressure Blood Pressure [Right] O2 Sat by Pulse 98 90 97 Oximetry - Exam Uterus: Absent: tenderness FHR: category 1 Cervical Dilatation: 9 - Labs Labs: Abnormal Labs 11/25/16 04:30 RDW 13.0 L
[2016-11-26] MEDS: PITOCin/NS 30 UNIT/500ML 30 UNITS/500 ML BAG IV SCH (19:20)
[2016-11-26] MEDS ORDERED: XYLOCAINE 2% INFILTRATI ONE (21:46)
--- NOTE | 2016-11-26 22:45 | Procedure Note ---
OB Delivery Note - Delivery Date of Delivery: 11/26/16 Surgeon: JHOANA LONG Estimated blood loss: 300cc - Vaginal Delivery presentation: vertex Delivery position: OA Intrapartum events: labor-<37 weeks, PROM->1hr before delivery, prolonged labor- > = 20hr Delivery induction: oxytocin Delivery augmentation: pitocin Delivery monitor: external FHT, external uterine, internal uterine Route of delivery: Delivery placenta: spontaneous Delivery cord: 3 umbilical vessels Episiotomy: midline Delivery repair: vicryl Anesthesia: local, epidural - Infant A at 1 minute: 6 at 5 minutes: 7 Infant Gender: Female (Del @ 22:12, weight is 5 lbs. 9 oz. or 2524 g)
[2016-11-26] MEDS ORDERED: MILK OF MAGNESIA PO PRN (22:49)
[2016-11-26] MEDS ORDERED: ZOFRAN IV PRN (22:49)
[2016-11-26] MEDS ORDERED: LANSINOH TP PRN (22:49)
[2016-11-26] MEDS ORDERED: NORCO 5/325 PO PRN (22:49)
[2016-11-26] MEDS ORDERED: DULCOLAX PR PRN (22:49)
[2016-11-26] MEDS ORDERED: TYLENOL PO PRN (22:49)
[2016-11-26] MEDS ORDERED: PHENERGAN PR PRN (22:49)
[2016-11-26] MEDS ORDERED: BENADRYL PO PRN (22:49)
[2016-11-26] MEDS ORDERED: DERMOPLAST TP PRN (22:49)
[2016-11-26] MEDS ORDERED: TUCKS PAD TP PRN (22:49)
[2016-11-26] MEDS ORDERED: PHENERGAN PO PRN (22:49)
[2016-11-26] MEDS ORDERED: SODIUM CHLORIDE FLUSH SYRINGE 10 ML IV PRN (23:00)
[2016-11-26] MEDS ORDERED: SENOKOT S PO SCH (23:00)
[2016-11-27] MEDS: MOTRIN PO SCH ×4 (00:55→23:32)
[2016-11-27] MEDS ORDERED: PRENATAL VITAMIN PO SCH (10:00)
[2016-11-27 11:21] LABS: Hemoglobin 9.8 gm/dl (10.1-14.3)
[2016-11-27] MEDS: FEOSOL PO SCH ×2 (12:03→23:33)
[2016-11-27] MEDS: COLACE PO SCH ×2 (12:04→23:33)
--- NOTE | 2016-11-27 12:36 | Progress Note ---
Assessment and Plan - Patient Problems (1) (normal spontaneous vaginal delivery) Onset Date: 11/27/16 Current Visit: Yes Status: Resolved Plan to address problem: A: S/P - PPD #1 Doing well P: May go home tomorrow Subjective - Subjective Date of service: 11/27/16 Principal diagnosis: s/p - PPD #1 Interval history: Pt is feeling well without complaints. Bleeding improved. Patient reports: appetite normal, voiding normally, pain well controlled, flatus , ambulating normally [place]: doing well, in NICU Objective - Vital Signs Latest vital signs: Vital Signs Temp Pulse Resp BP BP Pulse Ox 11/27/16 08:15 97.8 F 74 18 115/65 11/27/16 05:08 98.6 F 71 100/57 11/27/16 01:20 99.7 F H 93 H 18 136/76 11/26/16 23:35 106 H 118/67 11/26/16 23:20 106 H 107/56 11/26/16 23:06 117 H 120/67 11/26/16 22:32 114 H 115/54 11/26/16 22:23 94 H 119/58 11/26/16 22:12 136 H 97 11/26/16 22:07 100 H 94 11/26/16 22:02 144 H 100 11/26/16 21:57 154 H 100 11/26/16 21:52 130 H 100 11/26/16 21:47 118 H 100 11/26/16 21:42 102 H 100 11/26/16 21:37 101 H 100 11/26/16 21:33 118 H 125/58 11/26/16 21:32 121 H 98 11/26/16 21:22 97 H 98 11/26/16 21:15 50 L 91 11/26/16 21:09 96 H 100 11/26/16 21:04 111 H 100 11/26/16 21:03 99 H 132/80 11/26/16 20:59 96 H 99 11/26/16 20:54 92 H 98 11/26/16 20:49 119 H 99 11/26/16 20:44 116 H 100 11/26/16 20:39 106 H 100 11/26/16 20:34 120 H 100 11/26/16 20:33 103 H 129/77 11/26/16 20:29 116 H 99 11/26/16 20:24 119 H 100 11/26/16 20:19 94 H 100 11/26/16 20:14 83 99 11/26/16 20:09 90 100 11/26/16 20:04 94 H 99 11/26/16 20:02 98 H 117/79 11/26/16 19:59 100 H 100 11/26/16 19:54 94 H 99 11/26/16 19:49 104 H 98 11/26/16 19:44 109 H 98 11/26/16 19:39 99 H 98 11/26/16 19:34 104 H 123/68 99 11/26/16 19:29 96 H 99 11/26/16 19:24 114 H 99 11/26/16 19:20 99.8 F H 18 11/26/16 19:19 96 H 99 11/26/16 19:03 107 H 130/79 11/26/16 18:43 96 H 97 11/26/16 18:38 104 H 97 11/26/16 18:33 108 H 98 11/26/16 18:32 98 H 117/67 11/26/16 18:28 101 H 96 11/26/16 18:23 91 H 97 11/26/16 18:20 99 H 90 11/26/16 18:18 95 H 98 11/26/16 18:13 89 93 11/26/16 18:08 88 96 11/26/16 18:03 98 H 114/77 98 11/26/16 17:58 104 H 98 11/26/16 17:53 98 H 98 11/26/16 17:48 96 H 96 11/26/16 17:43 89 99 11/26/16 17:38 91 H 99 11/26/16 17:33 86 117/67 98 11/26/16 17:28 91 H 98 11/26/16 17:23 104 H 98 11/26/16 17:18 90 97 11/26/16 17:13 86 98 11/26/16 17:08 88 100 11/26/16 17:04 94 H 123/54 11/26/16 17:03 91 H 97 11/26/16 16:58 100 H 98 11/26/16 16:53 92 H 97 11/26/16 16:48 89 96 11/26/16 16:43 99 H 98 11/26/16 16:38 104 H 96 11/26/16 16:33 105 H 122/80 97 11/26/16 16:28 76 96 11/26/16 16:23 88 97 11/26/16 16:18 85 96 11/26/16 16:13 94 H 97 11/26/16 16:08 99 H 97 11/26/16 16:03 77 96 11/26/16 16:02 100 H 128/65 11/26/16 15:58 79 95 11/26/16 15:53 80 96 11/26/16 15:48 84 96 11/26/16 15:43 93 H 96 11/26/16 15:38 81 95 11/26/16 15:33 98 H 96 11/26/16 15:32 98 H 133/76 11/26/16 15:28 91 H 96 11/26/16 15:24 102 H 94 11/26/16 15:23 94 H 95 11/26/16 15:18 86 96 11/26/16 15:13 89 96 11/26/16 15:08 101 H 95 11/26/16 15:03 80 113/66 95 11/26/16 14:58 82 96 11/26/16 14:53 81 96 11/26/16 14:49 99.0 F 89 122/75 11/26/16 14:48 80 97 11/26/16 14:43 81 96 11/26/16 14:38 82 96 11/26/16 14:33 73 122/75 96 11/26/16 14:28 82 96 11/26/16 14:23 87 97 11/26/16 14:18 116 H 97 11/26/16 14:13 82 97 11/26/16 14:08 90 97 11/26/16 14:03 98 H 99 11/26/16 14:02 92 H 103/61 11/26/16 13:58 73 97 11/26/16 13:53 79 97 11/26/16 13:48 78 98 11/26/16 13:43 76 97 11/26/16 13:38 71 97 11/26/16 13:33 70 99/55 98 11/26/16 13:28 77 98 11/26/16 13:23 71 98 09/07/17 13:18 71 98 11/26/16 13:13 69 98 11/26/16 13:08 90 98 11/26/16 13:03 74 99/54 98 11/26/16 12:58 75 99 11/26/16 12:53 72 99 11/26/16 12:48 84 98 11/26/16 12:43 84 99 11/26/16 12:38 91 H 98 Intake and Output 11/26/16 11/27/16 11/27/16 22:59 06:59 14:59 Intake Total 860 360 Output Total 1400 Balance -540 360 Intake: IV 500 PITOCin/NS 20 UNIT/1000ML 500 DRIP 20 units In 1,000 ml @ 125 mls/hr IV DIRECT SHWETHA Rx#:[id number] Oral 360 Intake, Free Water 360 Output: Urine 1400 Void 1400 Other: Total, Intake Amount 360 Total, Output Amount 900 # Voids Void 1 Estimated Blood Loss 300 - Exam Breasts: Present: deferred Cardiovascular: Present: Regular rate Lungs: Present: Clear to auscultation Abdomen: Present: normal appearance, soft Uterus: Present: normal, firm, fundal height below umbilicus Extremities: Present: normal - Labs Labs: Abnormal lab results 11/27/16 Range/Units 10:18 Hgb 9.8 L (10.1-14.3) gm/dl Hct 29.0 L (30.3-42.9) % Laboratory Tests 11/25/16 11/25/16 11/25/16 04:30 04:39 04:50 WBC 9.5 RBC 3.71 Hgb 11.2 Hct 32.7 MCV 88 MCH 30 MCHC 34 RDW 13.0 L Plt Count 255 Urine Opiates Screen Urine Methadone Screen Ur Barbiturates Screen Ur Phencyclidine Scrn Ur Amphetamines Screen U Benzodiazepines Scrn Urine Cocaine Screen U Marijuana (THC) Screen Drugs of Abuse Note RPR Nonreactive Blood Type A POSITIVE Antibody Screen Negative 11/25/16 11/27/16 06:20 10:18 WBC RBC Hgb 9.8 L Hct 29.0 L MCV MCH MCHC RDW Plt Count Urine Opiates Screen Presumptive negative Urine Methadone Screen Presumptive negative Ur Barbiturates Screen Presumptive negative Ur Phencyclidine Scrn Presumptive negative Ur Amphetamines Screen Presumptive negative U Benzodiazepines Scrn Presumptive negative Urine Cocaine Screen Presumptive negative U Marijuana (THC) Screen Presumptive negative Drugs of Abuse Note Disclamer RPR Blood Type Antibody Screen
--- NOTE | 2016-11-27 12:47 | Progress Note ---
Subjective Date of service: 11/27/16 Principal diagnosis: s/p - PPD #1 Interval history: 1st day after normal vaginal delivery Patient is in the bed, comfortable. Pain is well controlled with pain meds. Ambulated well. No residual neurological deficit. No anesthesia complications Objective - Constitutional Vitals: Vital Signs - 12hr 11/27/16 11/27/16 11/27/16 01:20 05:08 08:15 Temperature 99.7 F H 98.6 F 97.8 F Pulse Rate 93 H 71 74 Respiratory 18 18 Rate Blood Pressure 136/76 100/57 115/65 [Right] - Labs CBC & Chem 7: 11/27/16 10:18 Labs: Abnormal lab results 11/27/16 Range/Units 10:18 Hgb 9.8 L (10.1-14.3) gm/dl Hct 29.0 L (30.3-42.9) %
--- NOTE | 2016-11-27 16:55 | Discharge Summary ---
Providers - Providers Date of Admission: 11/25/16 04:30 Date of discharge: 11/28/16 Attending physician: JHOANA LONG Primary care physician: JHOANA LONG Hospitalization Reason for admission: IUP - , labor, rupture of membranes Delivery: Episiotomy: none Laceration: none Other procedures: none complications: none Discharge diagnosis: delivery baby: female Hospital course: Unremarkable. Condition at discharge: Good Disposition: DC-01 TO HOME OR SELFCARE - Discharge Diagnoses (1) (normal spontaneous vaginal delivery) Status: Resolved Plan - Discharge Medications Prescriptions: Ibuprofen [Motrin 600 MG tab] 600 mg PO Q8H PRN #30 tablet PRN Reason: Pain Multivitamin with Iron [Multivitamins with Iron] 1 each PO DAILY #30 tablet - Provider Discharge Summary Activity: routine, no sex for 6 weeks, no heavy lifting 4 weeks, no strenuous exercise Diet: routine Instructions: routine Additional instructions: [] Smoking cessation referral if applicable(refer to patient education folder for contact #) [] Refer to [facility]'s [facility] Booklet Call your doctor immediately for: * Fever > 100.5 * Heavy vaginal bleeding ( >1 pad per hour) * Severe persistent headache * Shortness of breath * Reddened, hot, painful area to leg or breast * Drainage or odor from incision. * Keep incision clean and dry at all times and follow doctor's instructions regarding bathing/showering - Follow up plan Follow up: JHOANA LONG MD [Primary Care Provider] - 6 Weeks
[2016-11-27 18:16] LABS: HIV-1 Antigen p24 Non React (Non React); HIVR-1/2 Ab Non React (Non React)
[2016-11-28] MEDS: MOTRIN PO SCH (06:33)
[2016-11-28 10:00] VITALS: BP 116/70
== END 2016-11-28 11:10 | disposition home or self-care (01) | DRG 775 ==
LOC: TRG 01:40 → LD 03:59 → TRG 04:30 → LD 04:30 → OB 11-27 00:49
PROVIDERS: ADMIT Obstetrics & Gynecology Gynecology; ATTEND Obstetrics & Gynecology Gynecology
PROC: 10E0XZZ Delivery of Products of Conception, External Approach (ICD-10-PCS; principal; 2016-11-26)
PROC: 3E033VJ Introduction of Other Hormone into Peripheral Vein, Percutaneous Approach (ICD-10-PCS; 2016-11-26)
PROC: 0W8NXZZ Division of Female Perineum, External Approach (ICD-10-PCS; 2016-11-26)
PROC: 3E0S3CZ (ICD-10-PCS; 2016-11-26)
PROC: 00HU33Z Insertion of Infusion Device into Spinal Canal, Percutaneous Approach (ICD-10-PCS; 2016-11-26)
DX: O42.013 Preterm premature rupture of membranes, onset of labor within 24 hours of rupture, third trimester (principal); O63.9 Long labor, unspecified; Z3A.35 35 weeks gestation of pregnancy; Z37.0 Single live birth; O76 Abnormality in fetal heart rate and rhythm complicating labor and delivery
CPT/HCPCS: 36415; 76815; 80307; 85014; 85018; 85027; 86592; 86762; 86850; 86900; 86901; 87806; 99211; G0463; J0290; J2590; J3010; J7120